=== PATIENT | female | born 1940 | race Caucasian/White ===

== ENCOUNTER 2021-06-21 03:45 | Emergency (ER) | payer MEDICARE, OTHER ==
[2021-06-21] MEDS ORDERED: ROCEPHIN 1 Gm-D5w 50 ml Bag** 1 G/50 ML IVPB IV ONE (06:24)
[2021-06-21 06:28] LABS: INR 4.09 (0.8-3.0); PROTIME 48.3 SECONDS (9.4-12.5)
[2021-06-21 06:39] LABS: BLOOD UREA NITROGEN 18 mg/dL (7-17); Creatinine 1 0.99 mg/dL (0.52-1.04); EST GLOMERULAR FILTRATION RATE 57.2 ML/MIN; Glucose 107 mg/dL (74-106); Potassium 4.4 mmol/L (3.5-5.1); SODIUM 139 mmol/L (137-145)
[2021-06-21 06:40] LABS: ALBUMIN 3.8 g/dL (3.5-5.0); ALKALINE PHOSPHATASE 77 U/L (38-126); CHLORIDE 109 mmol/L (98-107); Calcium 10.7 mg/dL (8.4-10.2); Carbon Dioxide 22 mmol/L (22-30); SGOT/AST 25 U/L (14-36); SGPT/ALT 13 U/L (0-35); TROPONIN < 0.012 ng/mL (0.000-0.034); Total Protein 7.1 g/dL (6.3-8.2)
[2021-06-21 06:41] LABS: ANION GAP 12.4 MEQ/L (5-15)
[2021-06-21 06:42] LABS: Hematocrit 38.9 % (35-47); Mean Cell Volume 97.5 fl (78-100); Mean Corpuscular Hemoglobin 30.1 pg (26-32); Red Blood Count 3.99 M/mm3 (4.1-5.4); White Blood Count 10.2 K/mm3 (4.0-10.5)
[2021-06-21 06:43] LABS: Mean Corpuscular Hgb Concent. 30.8 g/dl (32-36); Platelet Count 259 K/mm3 (150-450)
[2021-06-21 06:47] LABS: Appearance CLOUDY (CLEAR); Leukocyte Esterase TRACE (NEGATIVE); Specific Gravity 1.019 (1.005-1.025)
[2021-06-21 06:48] LABS: Bilirubin NEGATIVE (NEGATIVE); Blood SMALL Ery/ul (0-5); Glucose NEGATIVE (NEGATIVE); Ketones TRACE (NEGATIVE); Mucus SLIGHT /HPF (NEGATIVE); Nitrite POSITIVE (NEGATIVE); Protein,Urine Dip NEGATIVE (Negative); Urobilinogen NORMAL mg/dL (0-1); WBC 51-100 /HPF (0-5)
[2021-06-21 06:49] LABS: Bacteria FEW /HPF (NEGATIVE); Epithelial Cells RARE /HPF (FEW)
--- NOTE | 2021-06-21 11:40 | XRAY ---
Indication: Pain. Comparison: March 21, 2019. Portable chest clear. Heart not enlarged for AP portable technique. Descending aorta remains slightly tortuous. Bony thorax intact again with mild osteopenia and degenerative changes. Impression: Continued nonacute chest with chronic findings.
== END 2021-06-21 07:50 ==
LOC: ED 03:45
DX: R52 Pain, unspecified (principal); I10 Essential (primary) hypertension; I67.9 Cerebrovascular disease, unspecified; Z86.79 Personal history of other diseases of the circulatory system; F03.90 Unspecified dementia, unspecified severity, without behavioral disturbance, psychotic disturbance, mood disturbance, and anxiety
CPT/HCPCS: 36415; 71045; 80053; 81001; 84484; 85027; 85610; 87077; 87086; 87186; 96372; 99284; J0696

== ENCOUNTER 2021-12-27 10:05 | Emergency (ER) | payer MEDICARE, OTHER ==
--- NOTE | 2021-12-27 10:15 | ERPHSYRPT ---
- History of Present Illness Time Seen by Provider: 12/27/21 10:15 Source: patient, EMS Exam Limitations: no limitations Physician History: This patient is an 81-year-old white female [facility] patient who fell out of her wheelchair onto her head. She did not lose consciousness per her report. However she does have pain in her head. She also complains of right hand pain. Patient has a history of dementia, hypertension and history of DVT and is taking warfarin daily. Patient has no chest pain. She denies abdominal pain. She has no shortness of breath. Occurred: just prior to arrival Severity: mild Head Injury Location: frontal Method of Injury: fell Loss of Consciousness: no loss of consciousness Associated Symptoms: headaches, No nausea, No vomiting, No shortness of breath, No chest pain, No seizure Allergies/Adverse Reactions: Sulfa (Sulfonamide Antibiotics) Allergy (Mild, Verified 12/27/21 10:08) bad dreams and hallucinations Home Medications: Amlodipine Besylate 5 mg [Norvasc 5 mg] 5 mg PO DAILY 05/24/14 [History] Acetaminophen 325 mg [Tylenol 325 mg] 1 tab PO Q4HPRN PRN 06/14/15 [History] B12/Levomefolate Calcium/B-6 [Folbic Rf Tablet] 1 tab PO DAILY 06/14/15 [History] Sertraline HCl [Zoloft] 25 mg PO DAILY 06/14/15 [History] Warfarin Sodium 3 mg [Coumadin 3 MG] 3 mg PO UD 06/14/15 [History] Hx Tetanus, Diphtheria Vaccination/Date Given: No Hx Influenza Vaccination/Date Given: Yes (2012) Hx Pneumococcal Vaccination/Date Given: Yes (2010) Travel Risk - International Travel Have you traveled outside of the country in past 3 weeks: No - Coronavirus Screening Are you exhibiting any of the following symptoms?: No Close contact with a COVID-19 positive Pt in past 14-21 Days: No - Review of Systems Constitutional: No Symptoms Eyes: No Symptoms Ears, Nose, & Throat: No Symptoms, Throat Swelling Cardiac: No Symptoms Abdominal/Gastrointestinal: No Symptoms Genitourinary Symptoms: No Symptoms Musculoskeletal: Fall, Injury (Right hand) Skin: No Symptoms Neurological: No Symptoms Psychological: No Symptoms Endocrine: No Symptoms Immunological/Allergic: No Symptoms All Other Systems: Reviewed and Negative - Past Medical History Pertinent Past Medical History: Yes Neurological History: Dementia ENT History: No Pertinent History Cardiac History: Deep Vein Thrombosis, Hypertension Respiratory History: No Pertinent History Endocrine Medical History: No Pertinent History Musculoskeletal History: Arthritis GI Medical History: Diverticulosis, Polyps History: No Pertinent History Psycho-Social History: No Pertinent History Female Reproductive Disorders: No Pertinent History - Past Surgical History Past Surgical History: Yes Neuro Surgical History: No Pertinent History Cardiac: No Pertinent History Respiratory: No Pertinent History Gastrointestinal: No Pertinent History, Other Genitourinary: No Pertinent History Musculoskeletal: No Pertinent History Female Surgical History: Hysterectomy Other Surgical History: cataract, colonoscopy, colon resection 02/02/14 - Social History Smoking Status: Never smoker Exposure to second hand smoke: No Drug Use: none Patient Lives Alone: No - Nursing Vital Signs Nursing Vital Signs: Initial Vital Signs Temperature 97.6 F 12/27/21 10:10 Pulse Rate 91 H 12/27/21 10:10 Respiratory Rate 18 12/27/21 10:10 Blood Pressure 161/83 12/27/21 10:10 O2 Sat by Pulse Oximetry 95 12/27/21 10:10 Pain Scale Pain Intensity 5 - [place] Coma Score Best Eye Response ([place]): (4) open spontaneously Best Verbal Response ([place]): (5) oriented Best Motor Response ([place]): (6) obeys commands [place] Total: 15 - Physical Exam General Appearance: no apparent distress, alert, anxiety Head Injury: tenderness (Left forehead hematoma) Eye Exam: bilateral eye: normal inspection, PERRL, EOMI ENT Exam: airway nml, dental injury, nml ext.inspection, No evidence of ENT injury Neck Exam: supple, trachea midline, full range of motion, normal alignment, normal inspection Cardiovascular/Respiratory Exam: chest non-tender, no respiratory distress Gastrointestinal/Abdominal Exam: soft, non tender, no distention, no mass, no guarding, no ecchymosis, no organomegaly, no pulsatile mass, normal bowel sounds Pelvic Exam: not done Rectal Exam: not done Back Exam: normal inspection, normal range of motion, No CVA tenderness, No vertebral tenderness Extremity Exam: normal range of motion, normal inspection (Complains of right hand pain. No evidence of injury on examination) Mental Status Exam: alert, oriented x 3, cooperative youth minister Exam: normal hearing, normal speech, PERRL, tongue midline Motor/Sensory Exam: no motor deficit, no sensory deficit, no pronator drift Skin Exam: other (Subcutaneous hematoma left forehead) SpO2 Interpretation: normal O2 Delivery: Room Air - Course Nursing assessment & vital signs reviewed: Yes Ordered Tests: Active Orders 24 hr Category Date Time Status CERVICAL SPINE WO CONTRAST [CT] Stat Exams 12/27/21 10:13 Completed HAND (MINIMUM 3 VIEWS) Stat Exams 12/27/21 10:14 Completed HEAD WITHOUT CONTRAST [CT] Stat Exams 12/27/21 10:13 Completed - Progress Progress: unchanged Progress Note: 12/27/21 11:34 Right hand x-ray shows no acute fracture or dislocation. CAT scan of the head without contrast shows a scalp hematoma in the frontal region left side. There is generalized atrophy present. There is no acute intracranial abnormality. CAT scan of the cervical spine without contrast shows no acute fractures or subluxation. Counseled pt/family regarding: diagnosis, need for follow-up, rad results - Departure Departure Disposition: Home Clinical Impression: Fall with injury, Scalp hematoma Condition: Stable Critical Care Time: No Referrals: JOSSE RUANO [Primary Care Provider] - Follow up/PCP as directed Additional Instructions: Hold Coumadin for 48 hours then restart. Ice pack to forehead area 3 times a day for the next 48 hours. Follow-up with primary care physician for further evaluation and management.
--- NOTE | 2021-12-27 11:04 | XRAY ---
Exam: 4 views of the right hand from 12/27/2021. Comparison: None. Indication: 81-year-old female fell; complains of right hand pain Findings: AP, lateral, and oblique images of the right hand were obtained. The cath lab technologist stated that the patient was unable to "flatten" her hand or "fan" her fingers on the lateral image. The bones are demineralized. I see no acute right hand fracture or dislocation. Moderately advanced osteoarthritic changes are seen throughout the right hand affecting the carpal-first metacarpal joint, the interphalangeal joint of the right thumb, the PIP joint of the right fifth finger, and the DIP joints of the second through fifth fingers to the greatest extent. I also note some mild osteoarthritic change between the carpal scaphoid bone and multangular bones. The MCP joints appear essentially unremarkable. Mild malalignment is seen affecting the distal phalanx of the right index finger and fifth finger. I believe this is chronic. There is some mild chondrocalcinosis within the triangular fibrocartilage. Impression: 1. No acute right hand fracture or dislocation is seen. 2. Significant bone demineralization and scattered moderately advanced osteoarthritic changes throughout the right hand are seen.
--- NOTE | 2021-12-27 11:20 | XRAY ---
Exam: CT of the cervical spine without IV contrast from 12/27/2021. CTDI: 47.10 mGy Comparison: None. Indication: 81-year-old female fell suffering injury, complains of pain. Technique: Non-IV contrast axial images were obtained through the cervical spine. Reconstructed coronal and sagittal images were created and reviewed. Findings: I see no acute cervical spine fracture, AP subluxation, or prevertebral soft tissue swelling. The coronal images reveal mild convexity of the lower cervical spine toward the left. The bones are demineralized. There is advanced osteoarthritic change at the level of the preodontoid space. Moderate to marked multilevel degenerative disc disease is seen from C3-C4 through C6-C7 manifested by interspace height narrowing and marginal spurring. There is slight loss of the anterior vertebral body height of T1 which I believe is old. Some degenerative disc disease is seen at T1-T2 on the sagittal images. No obvious significant cervical canal stenosis is seen. Mild diffuse facet osteoarthritic changes are seen. I also note moderate osteoarthritic changes of the uncovertebral joints bilaterally from C3-C4 through C6-C7. Varying degrees of neural foraminal narrowing are seen from C3-C4 through C6-C7. Atherosclerotic vascular calcification is seen within both carotid artery bifurcations and both distal vertebral arteries. Impression: 1. I see no acute cervical spine fracture or AP traumatic subluxation. 2. Bone demineralization and advanced degenerative disc disease/degenerative joint disease throughout the cervical spine, as described above, are seen. 3. Bone demineralization is evident.
--- NOTE | 2021-12-27 11:23 | XRAY ---
Exam: CT of the head without IV contrast from 12/27/2021. CTDI: 53.92 mGy Comparison: CT of the head without IV contrast from 05/12/2014. Indication: 81-year-old female fell striking head within left frontal area. Technique: Non-IV contrast axial images were obtained through the brain. Reconstructed coronal and sagittal images were created and reviewed. Findings: The ventricles are mildly dilated in a diffuse manner. There is no focal mass effect or midline shift. No acute intracranial parenchymal hemorrhage or abnormal extra-axial fluid collection is seen. There is moderate bilateral periventricular decreased attenuation consistent with small vessel ischemic disease. This is slightly more prominent as compared to 05/12/2014. There is also prominence of the cortical sulci and basilar cisterns suggesting some generalized atrophy. A prominent scalp hematoma is seen overlying the left frontal region. No underlying skull fracture is seen. Some minimal mucosal thickening is seen within the left ethmoid sinus. No paranasal sinus air-fluid levels are seen. The mastoid air cells are well aerated. The middle ear cavities appear grossly unremarkable. The orbits appear intact. Some atherosclerotic vascular calcification is seen within the carotid siphons and distal vertebral arteries. Impression: 1. A moderate sized extracranial scalp hematoma is seen overlying the left frontal region. No underlying skull fracture or intracranial bleed is seen. 2. Moderate generalized atrophy and chronic small vessel ischemic changes are noted. 3. No acute intracranial process is evident.
[2021-12-27 12:05] VITALS: BP 141/65; PULSE 76; O2SAT 98
== END 2021-12-27 12:00 | disposition home or self-care (01) ==
LOC: ED 10:05
DX: S00.03XA Contusion of scalp, initial encounter (principal); W05.0XXA Fall from non-moving wheelchair, initial encounter; Y92.129 Unspecified place in nursing home as the place of occurrence of the external cause; M79.641 Pain in right hand; I10 Essential (primary) hypertension; F03.90 Unspecified dementia, unspecified severity, without behavioral disturbance, psychotic disturbance, mood disturbance, and anxiety; Z86.718 Personal history of other venous thrombosis and embolism; Z79.01 Long term (current) use of anticoagulants; Z79.899 Other long term (current) drug therapy
CPT/HCPCS: 70450; 72125; 73130; 99284

== ENCOUNTER 2022-05-07 04:26 | Emergency (ER) | payer MEDICARE, OTHER ==
[2022-05-07 04:40] VITALS: O2SAT 92
--- NOTE | 2022-05-07 04:50 | ERPHSYRPT ---
- History of Present Illness Time Seen by Provider: 05/07/22 04:42 Source: patient, EMS Patient Subjective Stated Complaint: pt arrived via EMS. They state that pt is non ambulatory and has dementia, pt tried to get out of bed to use the bathroom and fell and injured left ankle. Triage Nursing Assessment: pt is alert and oriented x3. pt l ankle is swollen and painful. pt rates p[ain as 06/11 Physician History: This is an 81-year-old white female patient of Dr. Bell who is a resident of [facility] who was brought into our emergency department by EMS service because of a fall injury to her left foot and ankle. Patient has dementia and got up out of bed to use the restroom and then twisted her left ankle. Her left ankle is tender and swollen. Patient is on Coumadin daily. There was no head and neck injury. Patient is typically not ambulatory. She forgot and got out of bed then fell. Method of Injury: fell, twisted Occurred: just prior to arrival Quality: aching Severity of Pain-Max: mild Severity of Pain-Current: mild Lower Extremities Pain: foot: left, ankle: left Modifying Factors: Improves With: movement Associated Symptoms: unable to bear weight Allergies/Adverse Reactions: Sulfa (Sulfonamide Antibiotics) Allergy (Mild, Verified 05/07/22 04:40) bad dreams and hallucinations Home Medications: Amlodipine Besylate 5 mg [Norvasc 5 mg] 5 mg PO DAILY 05/24/14 [History] Acetaminophen 325 mg [Tylenol 325 mg] 1 tab PO Q4HPRN PRN 06/14/15 [History] B12/Levomefolate Calcium/B-6 [Folbic Rf Tablet] 1 tab PO DAILY 06/14/15 [Hist ory] Sertraline HCl [Zoloft] 25 mg PO DAILY 06/14/15 [History] Warfarin Sodium 3 mg [Coumadin 3 MG] 3 mg PO UD 06/14/15 [History] Hx Tetanus, Diphtheria Vaccination/Date Given: Yes Hx Influenza Vaccination/Date Given: Yes (2012) Hx Pneumococcal Vaccination/Date Given: Yes (2010) Travel Risk - International Travel Have you traveled outside of the country in past 3 weeks: No - Coronavirus Screening Are you exhibiting any of the following symptoms?: No Close contact with a COVID-19 positive Pt in past 14-21 Days: No - Vaccine Status Have you recieved a Covid-19 vaccination: Yes [employer] Supervisor: Moderna - Vaccination Dates Date of 2cond Vaccination (if applicable): 12/13/20 - Review of Systems Constitutional: No Symptoms Eyes: No Symptoms Ears, Nose, & Throat: No Symptoms Respiratory: No Symptoms Cardiac: No Symptoms Abdominal/Gastrointestinal: No Symptoms Genitourinary Symptoms: No Symptoms Musculoskeletal: Injury (Left foot and ankle) Skin: No Symptoms Neurological: No Symptoms, Sensory Changes Psychological: No Symptoms Endocrine: No Symptoms Hematologic/Lymphatic: No Symptoms Immunological/Allergic: No Symptoms All Other Systems: Reviewed and Negative - Past Medical History Pertinent Past Medical History: Yes Neurological History: Dementia ENT History: No Pertinent History Cardiac History: Deep Vein Thrombosis, Hypertension Respiratory History: No Pertinent History Endocrine Medical History: No Pertinent History Musculoskeletal History: Arthritis GI Medical History: Diverticulosis, Polyps History: No Pertinent History Psycho-Social History: No Pertinent History Female Reproductive Disorders: No Pertinent History - Past Surgical History Past Surgical History: Yes Neuro Surgical History: No Pertinent History Cardiac: No Pertinent History Respiratory: No Pertinent History Gastrointestinal: No Pertinent History, Other Genitourinary: No Pertinent History Musculoskeletal: No Pertinent History Female Surgical History: Hysterectomy Other Surgical History: cataract, colonoscopy, colon resection 02/02/14 - Social History Smoking Status: Never smoker Exposure to second hand smoke: No Drug Use: none Patient Lives Alone: No - Nursing Vital Signs Nursing Vital Signs: Initial Vital Signs Temperature 98.0 F 05/07/22 04:29 Pulse Rate 79 05/07/22 04:29 Respiratory Rate 18 05/07/22 04:29 Blood Pressure 140/62 05/07/22 04:29 O2 Sat by Pulse Oximetry 92 L 05/07/22 04:29 Pain Scale Pain Intensity 8 - Physical Exam SpO2: 92 Procedures - Splinting Time of Procedure: 05:15 Location of Splint: Left, Foot, Ankle Type of Splint: Orthoglass Short Leg Splint Splint Applied By: ED Nurse Pre-Proc Neuro Vasc Exam: normal Post-Proc Neuro Vasc Exam: neurovascular intact Ordered Tests: Active Orders 24 hr Category Date Time Status Splint STAT Care 05/07/22 04:52 Ordered ANKLE (3 VIEWS) Stat Exams 05/07/22 04:28 Ordered FOOT (MINIMUM 3 VIEWS) Stat Exams 05/07/22 04:28 Ordered - Progress Progress: improved, pain not gone completely Progress Note: 05/07/22 05:02 X-ray of the left ankle shows bimalleolar fracture. X-ray of the left foot shows no acute fracture or dislocation of the foot. Bimalleolar fracture is evident on the x-ray of the left foot as well. Counseled pt/family regarding: diagnosis, need for follow-up, rad results - Departure Departure Disposition: Home Clinical Impression: Closed left ankle fracture, Bimalleolar fracture of left ankle Condition: Stable Critical Care Time: No Referrals: JOSSE RUANO [Primary Care Provider] - Follow up/PCP as directed Additional Instructions: Nonweightbearing. Follow-up with [facility] orthopedic clinic today between the hours of 8 and 10 AM. No appointment is necessary. They will provide definitive care including casting if indicated.
[2022-05-07 05:27] VITALS: BP 137/68; PULSE 78
--- NOTE | 2022-05-07 08:53 | XRAY ---
Indication: Pain following fall. Comparison: None 3 nonweightbearing views left foot demonstrates ankle fracture reported separately. Incidental osteopenia, tiny heel spurs, mild midfoot degenerative changes, and scattered vascular calcifications. Remaining foot unremarkable.
--- NOTE | 2022-05-07 08:53 | XRAY ---
Indication: Pain following fall. Comparison: None 3 view left ankle demonstrates mildly displaced bimalleolar fractures with soft tissue swelling. Talus subluxed laterally. Elsewhere osteopenia, tiny heel spurs, and scattered vascular calcifications.
== END 2022-05-07 06:01 | disposition home or self-care (01) ==
LOC: ED 04:26
DX: S82.842A Displaced bimalleolar fracture of left lower leg, initial encounter for closed fracture (principal); W01.0XXA Fall on same level from slipping, tripping and stumbling without subsequent striking against object, initial encounter; Z91.81 History of falling; Y92.122 Bedroom in nursing home as the place of occurrence of the external cause; M25.572 Pain in left ankle and joints of left foot; F03.90 Unspecified dementia, unspecified severity, without behavioral disturbance, psychotic disturbance, mood disturbance, and anxiety; I10 Essential (primary) hypertension; Z79.01 Long term (current) use of anticoagulants; Z79.899 Other long term (current) drug therapy
CPT/HCPCS: 29515; 73610; 73630; 99283